=== PATIENT | male | born 1965 | race African-American/Black ===

== ENCOUNTER 2016-07-26 10:10 | Emergency (ER) | payer SELFPAY ==
[~2016-07-26] VITALS: Ht 170.2 cm; Wt 60.0 kg
[2016-07-26 10:13] VITALS: BP_SYST 184; BP_SYST 193; BP_DIAS 127; BP_DIAS 135; PULSE 96; RESP 15; TEMP 98.6; O2SAT 99
[2016-07-26] MEDS ORDERED: SODIUM CHLOR 0.9% 1000 ML INJ 1,000 ML IV SCH (10:39)
--- NOTE | 2016-07-26 10:44 | PD ---
HPI Chief Complaint: Abdominal Pain Time Seen by Provider: 10:40 Travel History International Travel<30 days: No Contact w/Intl Traveler<30days: No Traveled to known affect area: No History of Present Illness HPI Patient is a 50-year-old male presenting to the emergency department for evaluation of abdominal pain. Patient states the pain is epigastric, he reports pain is a 10 out of 10 and cramping in nature. He denies any change in bowel habits, nausea, vomiting, fever, chills, shortness of breath or chest pain. The pain is exacerbated by food, he reports decreased appetite. Patient endorses daily alcohol use, drinking 1 pint plus a 4 pack of beer daily however he has not had anything alcoholic to drink in 2 days due to the pain. Patient reports a past medical history significant for hypertension however he has not been taking any medications in over 4 years. He denies any allergies, he endorses daily tobacco use as well. PFSH Past Medical History Hypertension: Yes Past Surgical History Abdominal Surgery: Yes (inguinal hernia repair) Tonsillectomy: Yes Social History Alcohol Use: Yes Tobacco Use: Yes Substance Use: No Allergies-Medications (Allergen,Severity, Reaction): Coded Allergies: No Known Allergies (Unverified , 07/26/16) Review of Systems Except as stated in HPI: all other systems reviewed are Neg General / Constitutional: No: Fever, Chills HENT: No: Headaches Cardiovascular: No: Chest Pain or Discomfort Respiratory: No: Shortness of Breath Gastrointestinal: Positive: Abdominal Pain, Loss of Appetite, No: Nausea, Vomiting, Diarrhea, Changes in Bowel Habits, Indigestion Genitourinary: No: Dysuria Musculoskeletal: No: Myalgias Neurologic: No: Weakness, Dizziness, Focal Abnormalities Physical Exam Narrative GENERAL: Thin, well-developed, alert male. Resting comfortably in no acute distress. SKIN: Focused skin assessment warm/dry. HEAD: Atraumatic. Normocephalic. EYES: Pupils equal and round. No scleral icterus. No injection or drainage. ENT: No nasal bleeding or discharge. Mucous membranes pink and moist. NECK: Trachea midline. No JVD. CARDIOVASCULAR: Regular rate and rhythm. No murmur appreciated. RESPIRATORY: No accessory muscle use. Clear to auscultation. Breath sounds equal bilaterally. GASTROINTESTINAL: Abdomen soft, multi-tender to palpation in left upper quadrant and epigastric, nondistended. Hepatic and splenic margins not palpable. Positive bowel sounds, no rebound, no guarding. MUSCULOSKELETAL: No obvious deformities. No clubbing. No cyanosis. No edema. NEUROLOGICAL: Awake and alert. No obvious cranial nerve deficits. Motor grossly within normal limits. Normal speech. PSYCHIATRIC: Appropriate mood and affect; insight and judgment normal. Data Data Last Documented VS Vital Signs Date Time Temp Pulse Resp B/P Pulse Ox O2 Delivery O2 Flow Rate FiO2 07/26/16 11:32 100 Room Air 07/26/16 11:28 73 18 182/121 07/26/16 10:13 98.6 Orders Complete Blood Count With Diff (07/26/16 10:39) Comprehensive Metabolic Panel (07/26/16 10:39) Lipase (07/26/16 10:39) Iv Access Insert/Monitor (07/26/16 10:39) Ecg Monitoring (07/26/16 10:39) Oximetry (07/26/16 10:39) Sodium Chlor 0.9% 1000 Ml Inj (Ns 1000 M (07/26/16 10:39) Sodium Chloride 0.9% Flush (Ns Flush) (07/26/16 10:45) Famotidine Inj (Pepcid Inj) (07/26/16 10:45) Ketorolac Inj (Toradol Inj) (07/26/16 11:00) Lisinopril (Prinivil) (07/26/16 11:30) Labs Laboratory Tests Test 07/26/16 10:00 White Blood Count 6.2 TH/MM3 Red Blood Count 5.33 MIL/MM3 Hemoglobin 16.2 GM/DL Hematocrit 47.2 % Mean Corpuscular Volume 88.5 FL Mean Corpuscular Hemoglobin 30.3 PG Mean Corpuscular Hemoglobin 34.3 % Concent Red Cell Distribution Width 13.6 % Platelet Count 236 TH/MM3 Mean Platelet Volume 7.8 FL Neutrophils (%) (Auto) 70.1 % Lymphocytes (%) (Auto) 21.8 % Monocytes (%) (Auto) 7.5 % Eosinophils (%) (Auto) 0.1 % Basophils (%) (Auto) 0.5 % Neutrophils # (Auto) 4.3 TH/MM3 Lymphocytes # (Auto) 1.3 TH/MM3 Monocytes # (Auto) 0.5 TH/MM3 Eosinophils # (Auto) 0.0 TH/MM3 Basophils # (Auto) 0.0 TH/MM3 CBC Comment DIFF FINAL Differential Comment Sodium Level 138 MEQ/L Potassium Level 3.7 MEQ/L Chloride Level 95 MEQ/L Carbon Dioxide Level 29.7 MEQ/L Anion Gap 13 MEQ/L Blood Urea Nitrogen 9 MG/DL Creatinine 1.15 MG/DL Estimat Glomerular Filtration 68 ML/MIN Rate Random Glucose 118 MG/DL Calcium Level 9.4 MG/DL Total Bilirubin 0.6 MG/DL Aspartate Amino Transf 68 U/L (AST/SGOT) Alanine Aminotransferase 45 U/L (ALT/SGPT) Alkaline Phosphatase 89 U/L Total Protein 8.6 GM/DL Albumin 4.2 GM/DL Lipase 490 U/L [facility] Medical Decision Making Medical Screen Exam Complete: Yes Emergency Medical Condition: Yes Interpretation(s) Laboratory Tests Test 07/26/16 10:00 White Blood Count 6.2 TH/MM3 Red Blood Count 5.33 MIL/MM3 Hemoglobin 16.2 GM/DL Hematocrit 47.2 % Mean Corpuscular Volume 88.5 FL Mean Corpuscular Hemoglobin 30.3 PG Mean Corpuscular Hemoglobin 34.3 % Concent Red Cell Distribution Width 13.6 % Platelet Count 236 TH/MM3 Mean Platelet Volume 7.8 FL Neutrophils (%) (Auto) 70.1 % Lymphocytes (%) (Auto) 21.8 % Monocytes (%) (Auto) 7.5 % Eosinophils (%) (Auto) 0.1 % Basophils (%) (Auto) 0.5 % Neutrophils # (Auto) 4.3 TH/MM3 Lymphocytes # (Auto) 1.3 TH/MM3 Monocytes # (Auto) 0.5 TH/MM3 Eosinophils # (Auto) 0.0 TH/MM3 Basophils # (Auto) 0.0 TH/MM3 CBC Comment DIFF FINAL Differential Comment Sodium Level 138 MEQ/L Potassium Level 3.7 MEQ/L Chloride Level 95 MEQ/L Carbon Dioxide Level 29.7 MEQ/L Anion Gap 13 MEQ/L Blood Urea Nitrogen 9 MG/DL Creatinine 1.15 MG/DL Estimat Glomerular Filtration 68 ML/MIN Rate Random Glucose 118 MG/DL Calcium Level 9.4 MG/DL Total Bilirubin 0.6 MG/DL Aspartate Amino Transf 68 U/L (AST/SGOT) Alanine Aminotransferase 45 U/L (ALT/SGPT) Alkaline Phosphatase 89 U/L Total Protein 8.6 GM/DL Albumin 4.2 GM/DL Lipase 490 U/L Vital Signs Date Time Temp Pulse Resp B/P Pulse Ox O2 Delivery O2 Flow Rate FiO2 07/26/16 10:13 193/135 07/26/16 10:13 98.6 96 15 184/127 99 Differential Diagnosis Pancreatitis versus alcoholic gastritis versus cholecystitis versus other Narrative Course Patient is a 50-year-old male presenting to emergency department for evaluation of abdominal pain that is ongoing for 3 days. He is noted to be hypertensive, he has a history of the same but has been off medications for over 4 years per his report. Labs ordered and pending, famotidine ordered as well as IV fluids. 1120-patient reassessed, he sleeping in no acute distress. BP rechecked at 190/ 134. Lisinopril 20 mg by mouth times one dose given. 1155- patient continues to be resting comfortably, labs reviewed, patient has a mild pancreatitis likely induced by alcohol intake. He was advised to abstain from alcohol at the minimum reduce his intake. He was advised to maintain a clear liquid diet for 24 hours, if pain free he can advance to a bland low residue, advancing as tolerated again. He will be provided with a prescription for lisinopril, he will be given information regarding the [place] [facility]. He was advised to take blood pressure medications daily at the same time, not skipping doses. He is encouraged to follow up with them to establish care for routine health care. He was advised to return to emergency department for any new or worsening symptoms. Patient verbalized understanding of these instructions. Patient is stable for discharge. Diagnosis Primary Impression: Subacute pancreatitis Additional Impressions: Hypertension Qualified Code: I10 - Essential hypertension Admits to alcohol use Referrals: [facility] 3 days Patient Instructions: General Instructions, Hypertension (ED), Pancreatitis (ED ) Additional Instructions: Maintain a clear liquid diet for 24 hours, followed by a bland easy to digest diet, if pain free you may advance as tolerated. Take blood pressure medications as directed Follow-up at the [facility] Avoid excessive intake of alcohol or avoid altogether Return to emergency department for any new or worsening symptoms Med/Other Pt SpecificInfo: Prescription(s) given Scripts Lisinopril 20 Mg Tab20 Mg PO DAILY #30 TAB Ref 0 Prov:Cassie Tavarez 07/26/16 Disposition: 01 DISCHARGE HOME Condition: Stable Cassie Tavarez July 26, 2016 10:44
[2016-07-26] MEDS ORDERED: FAMOTIDINE 20 MG/2 ML VIAL IV PUSH ONE (10:45)
[2016-07-26] MEDS ORDERED: SODIUM CHLORIDE 0.9% FLUSH 10 ML FLUSH IV FLUSH PRN (10:45)
[2016-07-26] MEDS ORDERED: KETOROLAC TROMETHAMINE 30 MG/ML (IVP) VIAL IV PUSH ONE (11:00)
[2016-07-26 11:06] LABS: AUTOMATED NEUTROPHIL # 4.3 TH/MM3 (1.8-7.7); BASOPHIL % 0.5 % (0.0-2.0); EOSINOPHIL % 0.1 % (0.0-4.0); HEMATOCRIT 47.2 % (39.0-51.0); HEMO FLAGS DIFF FINAL; LYMPH % 21.8 % (9.0-44.0); LYMPHOCYTE # 1.3 TH/MM3 (1.0-4.8); MEAN CELL VOLUME 88.5 FL (80.0-100.0); MEAN CORPUSCULAR HEMOGLOBIN 30.3 PG (27.0-34.0); MEAN CORPUSCULAR HGB CONC 34.3 % (32.0-36.0); MONO % 7.5 % (0.0-8.0); NEUT % 70.1 % (16.0-70.0); PLATELET COUNT 236 TH/MM3 (150-450); RED BLOOD COUNT 5.33 MIL/MM3 (4.50-5.90); RED CELL DISTRIBUTION WIDTH 13.6 % (11.6-17.2); WHITE BLOOD COUNT 6.2 TH/MM3 (4.0-11.0)
[2016-07-26 11:28] VITALS: BP 182/121; PULSE 73; RESP 18
[2016-07-26] MEDS ORDERED: LISINOPRIL 20 MG TAB PO ONE (11:30)
[2016-07-26 11:32] VITALS: O2SAT 100
[2016-07-26 11:32] LABS: AST (GOT) 68 U/L (15-37); BICARBONATE 29.7 MEQ/L (21.0-32.0); BLOOD UREA NITROGEN 9 MG/DL (7-18); GLOMERULAR FILTRATION RATE 68 ML/MIN (>89)
[2016-07-26 11:42] LABS: ALKALINE PHOSPHATASE 89 U/L (45-117); ALT (GPT) 45 U/L (12-78); ANION GAP 13 MEQ/L (5-15); CHLORIDE 95 MEQ/L (98-107); POTASSIUM 3.7 MEQ/L (3.5-5.1); SODIUM (NA) 138 MEQ/L (136-145); TOTAL BILIRUBIN ADULT 0.6 MG/DL (0.2-1.0)
--- NOTE | 2016-07-26 11:54 | PD ---
Data Data Last Documented VS Vital Signs Date Time Temp Pulse Resp B/P Pulse Ox O2 Delivery O2 Flow Rate FiO2 07/26/16 11:32 100 Room Air 07/26/16 11:28 73 18 182/121 07/26/16 10:13 98.6 Orders Complete Blood Count With Diff (07/26/16 10:39) Comprehensive Metabolic Panel (07/26/16 10:39) Lipase (07/26/16 10:39) Iv Access Insert/Monitor (07/26/16 10:39) Ecg Monitoring (07/26/16 10:39) Oximetry (07/26/16 10:39) Sodium Chlor 0.9% 1000 Ml Inj (Ns 1000 M (07/26/16 10:39) Sodium Chloride 0.9% Flush (Ns Flush) (07/26/16 10:45) Famotidine Inj (Pepcid Inj) (07/26/16 10:45) Ketorolac Inj (Toradol Inj) (07/26/16 11:00) Lisinopril (Prinivil) (07/26/16 11:30) Labs Laboratory Tests Test 07/26/16 10:00 White Blood Count 6.2 TH/MM3 Red Blood Count 5.33 MIL/MM3 Hemoglobin 16.2 GM/DL Hematocrit 47.2 % Mean Corpuscular Volume 88.5 FL Mean Corpuscular Hemoglobin 30.3 PG Mean Corpuscular Hemoglobin 34.3 % Concent Red Cell Distribution Width 13.6 % Platelet Count 236 TH/MM3 Mean Platelet Volume 7.8 FL Neutrophils (%) (Auto) 70.1 % Lymphocytes (%) (Auto) 21.8 % Monocytes (%) (Auto) 7.5 % Eosinophils (%) (Auto) 0.1 % Basophils (%) (Auto) 0.5 % Neutrophils # (Auto) 4.3 TH/MM3 Lymphocytes # (Auto) 1.3 TH/MM3 Monocytes # (Auto) 0.5 TH/MM3 Eosinophils # (Auto) 0.0 TH/MM3 Basophils # (Auto) 0.0 TH/MM3 CBC Comment DIFF FINAL Differential Comment Sodium Level 138 MEQ/L Potassium Level 3.7 MEQ/L Chloride Level 95 MEQ/L Carbon Dioxide Level 29.7 MEQ/L Anion Gap 13 MEQ/L Blood Urea Nitrogen 9 MG/DL Creatinine 1.15 MG/DL Estimat Glomerular Filtration 68 ML/MIN Rate Random Glucose 118 MG/DL Calcium Level 9.4 MG/DL Total Bilirubin 0.6 MG/DL Aspartate Amino Transf 68 U/L (AST/SGOT) Alanine Aminotransferase 45 U/L (ALT/SGPT) Alkaline Phosphatase 89 U/L Total Protein 8.6 GM/DL Albumin 4.2 GM/DL Lipase 490 U/L MDM Supervised Visit with BLAYNE: Yes Narrative Course I, Dr. Garcia, have reviewed the advance practice practioner's documentation and am in agreement, met with the patient face to face, made the diagnosis, and the medical decision making was done by me. *My assessment and Findings: 50-year-old male here with complaint of epigastric and left upper quadrant abdominal pain without other associated symptoms. Patient does drink alcohol frequently, but not the last 2 days with pain. He has minimal epigastric and left upper quadrant abdominal tenderness to palpation. Differential includes alcoholic gastritis, peptic ulcer disease, pancreatitis and less likely hepatobiliary pathology. Laboratory workup shows minimally elevated lipase in the 400s. Patient was encouraged to do clear liquid diet, avoid alcohol and will be discharged home. Araceli Garcia MD July 26, 2016 11:54
[2016-07-26] MEDS ORDERED: LISI-515 PO (11:55)
[2016-07-26 12:16] VITALS: BP 179/118; PULSE 80; RESP 16; O2SAT 100
== END 2016-07-26 12:36 | disposition home or self-care (01) ==
LOC: NEPD 10:10
DX: K85.90 Acute pancreatitis without necrosis or infection, unspecified (principal); I10 Essential (primary) hypertension; R63.0 Anorexia; R74.8 Abnormal levels of other serum enzymes; Z72.0 Tobacco use
CPT/HCPCS: 80053; 83690; 85025; 96374; 96375; 99284; J1885; J7030

== ENCOUNTER 2016-07-26 21:00 | Observation (INO) | payer SELFPAY ==
[~2016-07-26 21:00] MED LIST: LISI-515 PO
[2016-07-26 21:02] VITALS: BP 174/105; PULSE 96; RESP 16; TEMP 98.4; O2SAT 96
--- NOTE | 2016-07-26 21:43 | PD ---
Physical Exam Time Seen by Provider: 21:42 Narrative 50 y/o male returns for reevaluation of epigastric abdominal pain. Seen earlier , dx with pancreatitis. Vital signs reviewed. Seen at triage desk. Awaiting bed placement. Data Data Last Documented VS Vital Signs Date Time Temp Pulse Resp B/P Pulse Ox O2 Delivery O2 Flow Rate FiO2 07/26/16 21:02 98.4 96 16 174/105 96 Room Air [facility] Medical Record Reviewed: Yes Supervised Visit with BLAYNE: Jean Carlos Hermosillo July 26, 2016 21:43
[2016-07-26] MEDS ORDERED: SODIUM CHLOR 0.9% 1000 ML INJ 1,000 ML IV SCH (22:28)
[2016-07-26] MEDS ORDERED: SODIUM CHLORIDE 0.9% FLUSH 10 ML FLUSH IV FLUSH PRN (22:30)
[2016-07-26 22:57] LABS: AUTOMATED NEUTROPHIL # 6.8 TH/MM3 (1.8-7.7); BASOPHIL % 0.4 % (0.0-2.0); EOSINOPHIL % 0.2 % (0.0-4.0); HEMATOCRIT 40.4 % (39.0-51.0); HEMO FLAGS DIFF FINAL; LYMPH % 16.9 % (9.0-44.0); LYMPHOCYTE # 1.5 TH/MM3 (1.0-4.8); MEAN CELL VOLUME 88.9 FL (80.0-100.0); MEAN CORPUSCULAR HEMOGLOBIN 30.3 PG (27.0-34.0); MONO % 6.5 % (0.0-8.0); PLATELET COUNT 201 TH/MM3 (150-450); RED BLOOD COUNT 4.54 MIL/MM3 (4.50-5.90); RED CELL DISTRIBUTION WIDTH 13.5 % (11.6-17.2); WHITE BLOOD COUNT 8.9 TH/MM3 (4.0-11.0)
--- NOTE | 2016-07-26 23:12 | PD ---
HPI Chief Complaint: Abdominal Pain Time Seen by Provider: 22:49 Travel History International Travel<30 days: No Contact w/Intl Traveler<30days: No Traveled to known affect area: No History of Present Illness HPI 50-year-old male presents emergency primary for second evaluation of epigastric and right upper quadrant abdominal pain. Patient states that he has been unable tolerate any by mouth for the past 3 days. He was here earlier and did have an elevated lipase and ultimately was sent home. Patient denies any chest pain shortness of breath diarrhea. Patient states his symptoms are been gradually worsening. States that fairly intense now. PFSH Past Medical History Hypertension: Yes Tetanus Vaccination: < 5 Years Past Surgical History Abdominal Surgery: Yes (inguinal hernia repair) Tonsillectomy: Yes Social History Alcohol Use: Yes (daily beer) Tobacco Use: Yes (1/2 ppd) Substance Use: No Allergies-Medications (Allergen,Severity, Reaction): Coded Allergies: No Known Allergies (Unverified , 07/26/16) Reported Meds & Prescriptions Reported Meds & Active Scripts Active Lisinopril 20 Mg Tab 20 Mg PO DAILY Review of Systems Except as stated in HPI: all other systems reviewed are Neg Physical Exam Narrative GENERAL: Well-developed well-nourished in mild discomfort, laying on his side on the stretcher. SKIN: No rash no wound. HEAD: Atraumatic. Normocephalic. EYES: Pupils equal and round. No scleral icterus. No injection or drainage. ENT: No nasal bleeding or discharge. Mucous membranes pink and moist. NECK: Trachea midline. No JVD. CARDIOVASCULAR: Regular rate and rhythm. No murmur appreciated. RESPIRATORY: No accessory muscle use. Clear to auscultation. Breath sounds equal bilaterally. GASTROINTESTINAL: Abdomen soft, minimally tender in the epigastric area, there is some percussive tenderness the epigastric area, nondistended. Hepatic and splenic margins not palpable. No rebound tenderness MUSCULOSKELETAL: No obvious deformities. No clubbing. No cyanosis. No edema. NEUROLOGICAL: Awake and alert. No obvious cranial nerve deficits. Motor grossly within normal limits. Normal speech. PSYCHIATRIC: Appropriate mood and affect; insight and judgment normal. Data Data Last Documented VS Vital Signs Date Time Temp Pulse Resp B/P Pulse Ox O2 Delivery O2 Flow Rate FiO2 07/26/16 21:02 98.4 96 16 174/105 96 Room Air Orders Complete Blood Count With Diff (07/26/16 22:28) Comprehensive Metabolic Panel (07/26/16 22:28) Lipase (07/26/16 22:28) Iv Access Insert/Monitor (07/26/16 22:28) Ecg Monitoring (07/26/16 22:28) Oximetry (07/26/16 22:28) Sodium Chlor 0.9% 1000 Ml Inj (Ns 1000 M (07/26/16 22:28) Sodium Chloride 0.9% Flush (Ns Flush) (07/26/16 22:30) Morphine Inj (Morphine Inj) (07/26/16 23:15) Ondansetron Inj (Zofran Inj) (07/26/16 23:15) Ct Abd/Pel W Iv Contrast(Rout) (07/27/16 ) Admit Order (Ed Use Only) (07/27/16 ) Labs Laboratory Tests Test 07/26/16 22:39 White Blood Count 8.9 TH/MM3 Red Blood Count 4.54 MIL/MM3 Hemoglobin 13.8 GM/DL Hematocrit 40.4 % Mean Corpuscular Volume 88.9 FL Mean Corpuscular Hemoglobin 30.3 PG Mean Corpuscular Hemoglobin 34.0 % Concent Red Cell Distribution Width 13.5 % Platelet Count 201 TH/MM3 Mean Platelet Volume 7.9 FL Neutrophils (%) (Auto) 76.0 % Lymphocytes (%) (Auto) 16.9 % Monocytes (%) (Auto) 6.5 % Eosinophils (%) (Auto) 0.2 % Basophils (%) (Auto) 0.4 % Neutrophils # (Auto) 6.8 TH/MM3 Lymphocytes # (Auto) 1.5 TH/MM3 Monocytes # (Auto) 0.6 TH/MM3 Eosinophils # (Auto) 0.0 TH/MM3 Basophils # (Auto) 0.0 TH/MM3 CBC Comment DIFF FINAL Differential Comment Sodium Level 140 MEQ/L Potassium Level 3.5 MEQ/L Chloride Level 103 MEQ/L Carbon Dioxide Level 27.2 MEQ/L Anion Gap 10 MEQ/L Blood Urea Nitrogen 13 MG/DL Creatinine 1.51 MG/DL Estimat Glomerular Filtration 60 ML/MIN Rate Random Glucose 117 MG/DL Calcium Level 8.9 MG/DL Total Bilirubin 0.3 MG/DL Aspartate Amino Transf 69 U/L (AST/SGOT) Alanine Aminotransferase 44 U/L (ALT/SGPT) Alkaline Phosphatase 79 U/L Total Protein 7.4 GM/DL Albumin 3.6 GM/DL Lipase 457 U/L MDM Medical Decision Making Medical Screen Exam Complete: Yes Emergency Medical Condition: Yes Differential Diagnosis Pancreatitis, cholecystitis, dehydration, nausea vomiting, acute kidney injury. Narrative Course Patient 50-year-old male second presentation for epigastric pain today. Does have elevation of lipase. His creatinine has gone from 1.0-1.5 since ER evaluation earlier today. He has indications for admission at this time. Patient was discussed with Dr. Talamantes for admission. CT scan is still pending at the time of admission and she will follow that up. This was discussed with the patient and he is agreeable. Last 24 hours Impressions Abdomen/Pelvis CT 07/27/16 0000 Signed Impressions: Service Date/Time: Wednesday, July 27, 2016 00:57 - CONCLUSION: 1. Right hydronephrosis as above which may reflect uteropelvic junction obstruction likely long-standing. Chadwick Riggs MD Diagnosis Primary Impression: Pancreatitis Qualified Code: K85.90 - Acute pancreatitis, unspecified complication status, unspecified pancreatitis type Admitting Information Admitting Physician Requests: Observation Condition: Stable Virgil Costa MD July 26, 2016 23:12
[2016-07-26] MEDS ORDERED: MORPHINE SULFATE 4 MG/ML INJ IV PUSH ONE (23:15)
[2016-07-26] MEDS ORDERED: ONDANSETRON HCL 4 MG/2 ML VIAL IV PUSH ONE (23:15)
[2016-07-26 23:22] LABS: ALKALINE PHOSPHATASE 79 U/L (45-117); ALT (GPT) 44 U/L (12-78); ANION GAP 10 MEQ/L (5-15); AST (GOT) 69 U/L (15-37); BICARBONATE 27.2 MEQ/L (21.0-32.0); BLOOD UREA NITROGEN 13 MG/DL (7-18); CHLORIDE 103 MEQ/L (98-107); GLOMERULAR FILTRATION RATE 60 ML/MIN (>89); POTASSIUM 3.5 MEQ/L (3.5-5.1); SODIUM (NA) 140 MEQ/L (136-145); TOTAL BILIRUBIN ADULT 0.3 MG/DL (0.2-1.0)
[2016-07-27] VITALS (12 sets, daily range): BP systolic 122–203; BP diastolic 85–120; PULSE 56–78; RESP 17–18; TEMP 97.8–98.8; O2SAT 97–100
[2016-07-27] MEDS ORDERED: ONDANSETRON HCL 4 MG/2 ML VIAL IVP PRN (00:15)
[2016-07-27] MEDS ORDERED: NALOXONE HCL 0.4 MG/ML AMP IV PRN (00:15)
[2016-07-27] MEDS ORDERED: SODIUM CHLORIDE 0.9% FLUSH 10 ML FLUSH IV FLUSH PRN (00:15)
[2016-07-27] MEDS: SODIUM CHLOR 0.9% 1000 ML INJ 1,000 ML IV SCH ×3 (00:30→20:29)
[2016-07-27] MEDS ORDERED: IOHEXOL 350 MG/ML 10 ML VIAL (for RAD DIAG) IV ONE (00:56)
--- NOTE | 2016-07-27 01:22 | RADRPT ---
EXAM DATE/TIME: 07/27/2016 00:57 [facility] COMPARISON: No previous studies available for comparison. INDICATIONS : Abdomen pain past 3 days. IV CONTRAST: 90 cc Omnipaque 350 (iohexol) IV ORAL CONTRAST: No oral contrast ingested. RADIATION DOSE: 9.96 CTDIvol (mGy) MEDICAL HISTORY : Hypertension. SURGICAL HISTORY : Inguinal hernia repair. ENCOUNTER: Initial ACUITY: 3 days PAIN SCALE: 7/10 LOCATION: Bilateral abdomen TECHNIQUE: Volumetric scanning of the abdomen and pelvis was performed. Using automated exposure control and ad justment of the mA and/or kV according to patient size, radiation dose was kept as low as reasonably achievable to obtain optimal diagnostic quality images. FINDINGS: Examination of the lung bases demonstrates no abnormality. No pleural fluid is identified. No pulmona ry nodules are present. The liver and spleen are normal in size and no focal defects are identified. The gallbladder and pancreas are unremarkable. No intrahepatic or extrahepatic ductal dilatation is s een. The adrenal glands are unremarkable. The left kidney is unremarkable. Examination the right kidn ey demonstrates severe hydronephrosis with thinning of the cortex. No hydroureter is seen and this ma y reflect a congenitally ureteropelvic junction obstruction. Examination of the pelvis demonstrates no evidence of free fluid or pelvic mass. No abnormally enlarg ed inguinal or retroperitoneal lymph nodes are present. The bladder is unremarkable. CONCLUSION: 1. Right hydronephrosis as above which may reflect uteropelvic junction obstruction likely long-stand ing. Chadwick Riggs MD on July 27, 2016 at 1:16 Board Certified Radiologist. This report was verified electronically.
[2016-07-27] MEDS: MORPHINE SULFATE 4 MG/ML INJ IV PUSH PRN ×6 (01:43→20:29)
--- NOTE | 2016-07-27 02:00 | HHI.HP ---
[facility] [place] [facility] [place] [facility] No Primary Care Physician Admission Diagnosis Pancreatitis, OLGA Diagnoses: Chief Complaint: abdominal pain Travel History International Travel<30 Days: No Contact w/Intl Traveler <30 Da: No Traveled to Known Affected Are: No History of Present Illness 3 days nausea vomiting no dairrhea abdominal pain ruq and epigastric no blood no urine or buring no blood in urine right flank pain no fever reports of headache not takign meds but did have hot sweats and cold Review of Systems Except as stated in HPI: all other systems reviewed are Neg Past Family Social History Past Medical History htn Past Surgical History hernia sx circumcision Allergies: Coded Allergies: No Known Allergies (Unverified , 07/26/16) Family History htn in family most members Social History drinks a pint or 4 beers to 8 beers a day last drink was 3 days ago smoke half a pack a day Physical Exam Vital Signs Vital Signs Date Time Temp Pulse Resp B/P Pulse Ox O2 Delivery O2 Flow Rate FiO2 07/26/16 21:02 98.4 96 16 174/105 96 Room Air Physical Exam GENERAL: awake, alert, oriented, not in distress NECK: Trachea midline. No JVD or lymphadenopathy. Supple, nontender, no meningeal signs. CARDIOVASCULAR: Regular rate and rhythm without murmurs, gallops, or rubs. RESPIRATORY: Clear to auscultation. Breath sounds equal bily within normal limits. Abdomen: soft, tenderness at RUQ and epigastric, no rebound, no guarding MUSCULOSKELETAL: no calf asymmetry or edema : no suprapubic tenderness NEURO: awake, alert, oriented, not in distress Laboratory Laboratory Tests Test 07/26/16 22:39 White Blood Count 8.9 Red Blood Count 4.54 Hemoglobin 13.8 Hematocrit 40.4 Mean Corpuscular Volume 88.9 Mean Corpuscular Hemoglobin 30.3 Mean Corpuscular Hemoglobin 34.0 Concent Red Cell Distribution Width 13.5 Platelet Count 201 Mean Platelet Volume 7.9 Neutrophils (%) (Auto) 76.0 Lymphocytes (%) (Auto) 16.9 Monocytes (%) (Auto) 6.5 Eosinophils (%) (Auto) 0.2 Basophils (%) (Auto) 0.4 Neutrophils # (Auto) 6.8 Lymphocytes # (Auto) 1.5 Monocytes # (Auto) 0.6 Eosinophils # (Auto) 0.0 Basophils # (Auto) 0.0 CBC Comment DIFF FINAL Differential Comment Sodium Level 140 Potassium Level 3.5 Chloride Level 103 Carbon Dioxide Level 27.2 Anion Gap 10 Blood Urea Nitrogen 13 Creatinine 1.51 Estimat Glomerular Filtration 60 Rate Random Glucose 117 Calcium Level 8.9 Total Bilirubin 0.3 Aspartate Amino Transf 69 (AST/SGOT) Alanine Aminotransferase 44 (ALT/SGPT) Alkaline Phosphatase 79 Total Protein 7.4 Albumin 3.6 Lipase 457 Result Diagram: 07/26/16223807/26/162238 Imaging Last [address] 07/27/16 0000 Signed Impressions: Service Date/Time: Wednesday, July 27, 2016 02:58 - CONCLUSION: 1. No evidence of acute intracranial pathology. No masses are identified. Chadwick Riggs MD Abdomen/Pelvis CT 07/27/16 0000 Signed Impressions: Service Date/Time: Wednesday, July 27, 2016 00:57 - CONCLUSION: 1. Right hydronephrosis as above which may reflect uteropelvic junction obstruction likely long-standing. 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 IV fluids. Pain control. Will follow Ferny's criteria. Urology consult for his referral motor refill function DVT prophylaxis with lovenox Discussed Condition With patient, ER Problem Qualifiers (1) Pancreatitis: Qualified Code: K85.90 - Acute pancreatitis, unspecified complication status, unspecified pancreatitis type Tammy Parson MD July 27, 2016 02:00
[2016-07-27] MEDS ORDERED: ENALAPRILAT 2.5 MG/2 ML VIAL IV PUSH PRN (02:15)
[2016-07-27] MEDS ORDERED: cloNIDine HCL 0.1 MG TAB PO ONE ×2 (02:30→04:15)
[2016-07-27] MEDS ORDERED: LORazepam 2 MG/ML VIAL IV PUSH PRN ×3 (02:30→07:45)
--- NOTE | 2016-07-27 03:05 | RADRPT ---
EXAM DATE/TIME: 07/27/2016 02:58 [facility] COMPARISON: No previous studies available for comparison. INDICATIONS : Headches. RADIATION DOSE: 37.95 CTDIvol (mGy) MEDICAL HISTORY : Hypertension. SURGICAL HISTORY : Inguinal hernia repair. ENCOUNTER: Initial ACUITY: 3 days PAIN SCALE: 7/10 LOCATION: Bilateral cranial TECHNIQUE: Multiple contiguous axial images were obtained of the head. Using automated exposure control and adj ustment of the mA and/or kV according to patient size, radiation dose was kept as low as reasonably a chievable to obtain optimal diagnostic quality images. FINDINGS: CEREBRUM: The ventricles are normal for age. No evidence of midline shift, mass lesion, hemorrhage or acute in farction. No extra-axial fluid collections are seen. POSTERIOR FOSSA: The cerebellum and brainstem are intact. The 4th ventricle is midline. The cerebellopontine angle i s unremarkable. EXTRACRANIAL: The visualized portion of the orbits is intact. SKULL: The calvaria is intact. No evidence of skull fracture. CONCLUSION: 1. No evidence of acute intracranial pathology. No masses are identified. Chadwick Riggs MD on July 27, 2016 at 3:03 Board Certified Radiologist. This report was verified electronically.
[2016-07-27] MEDS ORDERED: LORazepam 1 MG TAB PO PRN (07:45)
[2016-07-27] MEDS ORDERED: LORazepam 2 MG TAB PO PRN (07:45)
[2016-07-27] MEDS ORDERED: FLUMAZENIL 0.5 MG/5 ML VIAL IV PUSH PRN (07:45)
[2016-07-27] MEDS: FOLIC ACID 1 MG TAB PO SCH (08:35)
[2016-07-27] MEDS: SODIUM CHLORIDE 0.9% FLUSH 10 ML FLUSH IV FLUSH SCH ×2 (08:40→20:23)
[2016-07-27] MEDS ORDERED: chlordiazePOXIDE 25 MG CAP PO SCH (09:00)
[2016-07-27] MEDS ORDERED: THIAMINE HCL 100 MG TAB PO SCH (09:00)
[2016-07-27] MEDS: MULTIVITAMIN INJ 10 ML, FOLIC ACID INJ 1 MG in SODIUM CHLORID 0.9% 500 ML INJ 500 ML IV SCH (09:05)
[2016-07-27 10:05] LABS: ALKALINE PHOSPHATASE 72 U/L (45-117); ALT (GPT) 41 U/L (12-78); ANION GAP 7 MEQ/L (5-15); AST (GOT) 53 U/L (15-37); BICARBONATE 29.2 MEQ/L (21.0-32.0); BLOOD UREA NITROGEN 8 MG/DL (7-18); CHLORIDE 104 MEQ/L (98-107); GLOMERULAR FILTRATION RATE 84 ML/MIN (>89); POTASSIUM 3.4 MEQ/L (3.5-5.1); SODIUM (NA) 140 MEQ/L (136-145); TOTAL BILIRUBIN ADULT 0.4 MG/DL (0.2-1.0)
[2016-07-27] MEDS ORDERED: POTASSIUM CHLORIDE 20 MEQ CONTROLLED RELEASE TAB PO ONE (10:15)
--- NOTE | 2016-07-27 10:45 | HHI.PR ---
Subjective Remarks Follow up nausea and abdominal pain. Pt seen and examined. Patient states without morphine he still has epigastric pain and cramping lower transverse abdominal pain.01/03 without morphine, but no pain when he takes it. Denies any radiation to his flank or lower back. He tolerated clear liquids this am. Denies any nausea, vomiting or hematuria. Objective Vitals Vital Signs Date Time Temp Pulse Resp B/P Pulse Ox O2 Delivery O2 Flow Rate FiO2 07/27/16 07:24 97.8 65 17 131/85 98 07/27/16 06:27 122/89 07/27/16 05:17 162/109 07/27/16 04:53 169/113 07/27/16 04:00 190/120 Automatic Cuff 07/27/16 03:06 78 18 168/109 100 07/27/16 02:15 203/119 07/26/16 21:02 98.4 96 16 174/105 96 Room Air Result Diagram: 07/26/16 2239 07/27/16 0855 Imaging Last Impressions Head CT 07/27/16 0000 Signed Impressions: Service Date/Time: Wednesday, July 27, 2016 02:58 - CONCLUSION: 1. No evidence of acute intracranial pathology. No masses are identified. Chadwick Riggs MD Abdomen/Pelvis CT 07/27/16 0000 Signed Impressions: Service Date/Time: Wednesday, July 27, 2016 00:57 - CONCLUSION: 1. Right hydronephrosis as above which may reflect uteropelvic junction obstruction likely long-standing. Chadwick Riggs MD Objective Remarks GENERAL: thin, well nourished patient in no acute distress SKIN: Warm and dry. HEAD: Atraumatic. Normocephalic. EYES: Pupils equal and round. No scleral icterus. No injection or drainage. NECK: Trachea midline. No JVD. CARDIOVASCULAR: Regular rate and rhythm. RESPIRATORY: No accessory muscle use. Clear to auscultation. Breath sounds equal bilaterally. GASTROINTESTINAL: Abdomen soft, epigastric and lower tenderness, nondistended. BSx4 MUSCULOSKELETAL: Extremities without clubbing, cyanosis, or edema. No obvious deformities. NEUROLOGICAL: Awake and alert. Motor grossly within normal limits. Normal speech. PSYCHIATRIC: Appropriate mood and affect; insight and judgment normal. Medications and IVs Current Medications Medications (Trade) Dose Ordered Sig/Martir Route Start Time Stop Time Status Last Admin (NS 1000 ml Inj) 1,000 ml @ 100 mls/hr Q10H IV 07/27/16 00:11 07/27/16 00:30 (NS Flush) 2 ml UNSCH PRN IV FLUSH 07/27/16 00:15 (NS Flush) 2 ml BID IV FLUSH 07/27/16 09:00 (Zofran Inj) 4 mg Q6H PRN IVP 07/27/16 00:15 (Narcan Inj) 0.4 mg UNSCH PRN IV 07/27/16 00:15 (Morphine Inj) 2 mg Q3H PRN IV PUSH 07/27/16 00:15 07/27/16 08:34 (Librium) 25 mg TID PO 07/27/16 09:00 07/27/16 08:35 Folic Acid 1 mg 1 mg DAILY PO 07/27/16 09:00 08/01/16 08:59 07/27/16 08:35 Multivitamins 10 ml/Folic Acid 1 mg/Sodium Chloride 510.2 ml @ 125 mls/hr Q24H IV 07/27/16 09:00 08/01/16 08:59 07/27/16 09:05 (Thiamine Inj/NS Inj) 101 ml @ 100 mls/hr Q24H IV 07/27/16 09:00 07/30/16 08:59 (Vitamin B1) 100 mg DAILY PO 07/30/16 09:00 (Catapres) 0.1 mg Q6H PRN PO 07/27/16 07:45 (Romazicon Inj) 0.2 mg Q1M PRN IV PUSH 07/27/16 07:45 (Ativan) 1 mg Q4H PRN PO 07/27/16 07:45 (Ativan) 2 mg Q2H PRN PO 07/27/16 07:45 (Ativan Inj) 2 mg Q1H PRN IV PUSH 07/27/16 07:45 (Ativan Inj) 2 mg Q15M PRN IV PUSH 07/27/16 07:45 A/P Problem List: (1) Pancreatitis ICD Code: K85.90 Status: Acute (2) OLGA (acute kidney injury) ICD Code: N17.9 Status: Acute (3) Hydronephrosis ICD Code: N13.30 Status: Acute (4) Hypokalemia ICD Code: E87.6 Status: Acute (5) ETOH abuse ICD Code: F10.10 Status: Chronic Assessment and Plan 50 y/o male with a history of ETOH abuse presented to the ER with nausea, and abdominal pain. 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
[2016-07-27 11:03] LABS: BLOOD, URINE NEG (NEG); GLUCOSE,URINE NEG (NEG); KETONE, URINE NEG (NEG); NITRITE,URINE NEG (NEG); URINE COLOR YELLOW (YELLW/STRAW)
[2016-07-27 11:06] LABS: COMMENT (UR) CULT NOT INDICATED; CULTURE IF INDICATED CULT NOT INDICATED
[2016-07-27] MEDS ORDERED: FUROSEMIDE 40 MG/4 ML VIAL ONE (11:44)
[2016-07-27] MEDS: PANTOPRAZOLE SODIUM 40 MG VIAL IV PUSH SCH (12:39)
[2016-07-27] MEDS: THIAMINE INJ 100 MG in SODIUM CHLORIDE 0.9% INJ 100 ML IV SCH (15:00)
--- NOTE | 2016-07-27 16:30 | RADRPT ---
EXAM DATE/TIME: 07/27/2016 11:31 [place] COMPARISON: CT ABDOMEN & PELVIS W CONTRAST, July 27, 2016, 0:57. INDICATIONS : Hydronephrosis right kidney. DOSE: 21 mCi Tc99m DTPA IV MEDICATION: 40 mg Lasix IV MEDICAL HISTORY : Hypertension. SURGICAL HISTORY : Tonsillectomy. Hernia repair. ENCOUNTER: Initial ACUITY: 1 day PAIN SCALE: 5/10 LOCATION: Abdomen. TECHNIQUE: Dynamic images were performed in the posterior projection for a total of 28 minutes. FINDINGS: FLOW: There is intact perfusion to the left kidney and significantly diminished perfusion to the right kidn ey. EXCRETION: There is normal renal cortical transit time and normal rate of washout from the parenchyma from the l eft kidney with approximately 80% emptying occurring post Lasix. There is essentially no significant emptying from the right kidney with progressive accumulation of the radionuclide. CONCLUSION: High-grade obstruction in right kidney. Vandana Rios MD on July 27, 2016 at 16:25 Board Certified Radiologist. This report was verified electronically.
[2016-07-27] MEDS: cloNIDine HCL 0.1 MG TAB PO PRN (17:18)
[2016-07-28] VITALS (9 sets, daily range): BP systolic 138–165; BP diastolic 90–113; PULSE 67–80; RESP 16–20; TEMP 95.5–98.8; O2SAT 94–97
[2016-07-28] MEDS: MORPHINE SULFATE 4 MG/ML INJ IV PUSH PRN ×5 (00:13→20:05)
[2016-07-28] MEDS: SODIUM CHLOR 0.9% 1000 ML INJ 1,000 ML IV SCH ×2 (04:51→17:06)
[2016-07-28] MEDS: cloNIDine HCL 0.1 MG TAB PO PRN (05:12)
[2016-07-28 05:29] LABS: AUTOMATED NEUTROPHIL # 3.6 TH/MM3 (1.8-7.7); BASOPHIL % 0.6 % (0.0-2.0); EOSINOPHIL # 0.1 TH/MM3 (0-0.4); EOSINOPHIL % 1.2 % (0.0-4.0); HEMATOCRIT 40.7 % (39.0-51.0); HEMO FLAGS DIFF FINAL; LYMPH % 33.4 % (9.0-44.0); MEAN CELL VOLUME 90.2 FL (80.0-100.0); MEAN CORPUSCULAR HEMOGLOBIN 29.8 PG (27.0-34.0); MEAN CORPUSCULAR HGB CONC 33.1 % (32.0-36.0); MONO % 6.4 % (0.0-8.0); NEUT % 58.4 % (16.0-70.0); PLATELET COUNT 190 TH/MM3 (150-450); RED BLOOD COUNT 4.51 MIL/MM3 (4.50-5.90); RED CELL DISTRIBUTION WIDTH 13.7 % (11.6-17.2); WHITE BLOOD COUNT 6.1 TH/MM3 (4.0-11.0)
[2016-07-28 05:48] LABS: ALKALINE PHOSPHATASE 64 U/L (45-117); ALT (GPT) 37 U/L (12-78); ANION GAP 10 MEQ/L (5-15); AST (GOT) 38 U/L (15-37); BICARBONATE 27.7 MEQ/L (21.0-32.0); BLOOD UREA NITROGEN 6 MG/DL (7-18); CHLORIDE 102 MEQ/L (98-107); GLOMERULAR FILTRATION RATE 94 ML/MIN (>89); POTASSIUM 3.4 MEQ/L (3.5-5.1); SODIUM (NA) 140 MEQ/L (136-145); TOTAL BILIRUBIN ADULT 0.5 MG/DL (0.2-1.0)
[2016-07-28] MEDS ORDERED: POTASSIUM CHLORIDE 20 MEQ CONTROLLED RELEASE TAB PO ONE (07:30)
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
[2016-07-28] MEDS: SODIUM CHLORIDE 0.9% FLUSH 10 ML FLUSH IV FLUSH SCH ×2 (09:00→20:05)
[2016-07-28] MEDS: FOLIC ACID 1 MG TAB PO SCH (09:18)
[2016-07-28] MEDS: THIAMINE INJ 100 MG in SODIUM CHLORIDE 0.9% INJ 100 ML IV SCH (09:30)
--- NOTE | 2016-07-28 10:40 | MB ---
cc: PING ALTMAN M.D., JEFFREY D. MD DATE OF CONSULTATION: 07/28/[address] Larios. REASON FOR CONSULTATION Abdominal pain, nausea, vomiting. HISTORY OF PRESENT ILLNESS Mr. Alejandra is a 50-year-old gentleman with 4-day history of nausea, vomiting and abdominal pain. On presentation he was found to have hydronephrosis as well as biochemical evidence of pancreatitis. CT scan, however, shows no evidence of pancreatitis. His lipases have returned to normal but he continues to have abdominal pain and nausea, vomiting. He does admit to alcohol use. He says he had a similar episode a few years ago and at that time he drank milk and that settled his stomach down. He says this time he tried milk but did not help his symptoms so he came to the hospital. PAST MEDICAL HISTORY Hypertension. PAST SURGICAL HISTORY Hernia surgery. ALLERGIES None documented. FAMILY HISTORY Noncontributory. SOCIAL HISTORY The patient drinks beer, also is a smoker. PHYSICAL EXAMINATION GENERAL: Reveals a well-nourished man, in no apparent distress. VITAL SIGNS: Stable. HEAD/NECK: Anicteric sclerae. CHEST: Bilateral air entry with rales. ABDOMEN: Abdomen is soft, some tenderness in the epigastric area. No guarding or rigidity. ORAL HEALTH THERAPIST: Exam is nonfocal. LABORATORY DATA Labs reveal hemoglobin of 13.5, lipase 312. Liver function tests are essentially normal with an AST of 38. IMAGING STUDIES A CT of the abdomen and pelvis shows right hydronephrosis, otherwise no abnormalities. IMPRESSION Abdominal pain, nausea, vomiting, very likely related to pancreatitis. However, gastritis, peptic ulcer disease needs to be ruled out. I have discussed endoscopy with the patient and he is agreeable. This is planned for later today, n.p.o. at this time, continue IV fluids. Will follow with you. Thank you for this referral. Ping Altman MD HZ/TLL /10:11 AM /10:29 AM
[2016-07-28] MEDS: MULTIVITAMIN INJ 10 ML, FOLIC ACID INJ 1 MG in SODIUM CHLORID 0.9% 500 ML INJ 500 ML IV SCH (10:42)
[2016-07-28] MEDS: PANTOPRAZOLE SODIUM 40 MG VIAL IV PUSH SCH (11:00)
[2016-07-28] MEDS ORDERED: PROPOFOL 200 MG/20 ML AMP IV ONE (13:18)
--- NOTE | 2016-07-28 13:26 | GIPROC ---
[facility] [address] [facility]. [facility], [id number] EGD PROCEDURE REPORT EXAM DATE: 07/28/2016 PATIENT NAME: Andrea Alejandra MR #: [id number] BIRTHDATE: 1965 ATTENDING: Milly Burton MD ORDER #: [id number] MATERIAL HAULER: Viki Chappell and Carmen Manning STATUS: inpatient INDICATIONS: The patient is a 50 yr old male here for an EGD due to epigastric abdominal pain PROCEDURE PERFORMED: EGD w/ biopsy MEDICATIONS: None and Per Anesthesia. TOPICAL ANESTHETIC: CONSENT: The patient understands the risks and benefits of the procedure and understands that these risks include, but are not limited to: sedation, allergic reaction, infection, perforation and/or bleeding. Alternative means of evaluation and treatment include, among others: physical exam, x-rays, and/or surgical intervention. The patient elects to proceed with this endoscopic procedure. medical equipment was checked for proper function. Hand hygiene and appropriate measures for infection prevention was taken. After the risks, benefits and alternatives of the procedure were thoroughly explained, Informed consent was verified, confirmed and timeout was successfully executed by the treatment team. The patient was anesthetized with topical anesthesia and the Pentax EG-[id number] endoscope was introduced through the mouth and advanced to the second portion of the duodenum. Retroflexed views revealed no abnormalities The gastroscope was then slowly withdrawn and removed. ESOPHAGUS: The mucosa of the esophagus appeared normal. STOMACH: There was erythematous moderate gastritis in the gastric antrum. A biopsy was performed using cold forceps. DUODENUM: The duodenal mucosa appeared normal in the bulb and second portion of the duodenum. ADVERSE EVENTS: There were no complications. IMPRESSIONS: 1. The esophagus appeared normal 2. There was erythematous gastritis in the gastric antrum; biopsy was performed 3. Normal duodenal mucosa in the bulb and second portion of the duodenum 4. Retroflexed views revealed no abnormalities RECOMMENDATIONS: 1. Anti-reflux regimen 2. Await biopsy results. Biopsy results will not be ready for 7-10 days. If you don't hear from us in two weeks, call our office for biopsy results. 3. Continue PPI 4. Avoid NSAIDS 5. GI will sign off. PATIENT CONDITION: stable DISPOSITION: Inpatient REPEAT EXAM: Return 3 years EGD pending biopsy results Milly Burton MD eSigned: Milly Burton MD 07/28/2016 1:26 PM cc: PATIENT NAME: Andrea Alejandra tSeven MR#: [id number]
[2016-07-28] MEDS ORDERED: PROT40TA PO (17:47)
--- NOTE | 2016-07-28 17:48 | HHI.DCPOC ---
Discharge Care Plan Diagnosis: (1) Subacute pancreatitis (2) ETOH abuse (3) Gastritis Goals to Promote Your Health * To prevent worsening of your condition and complications * To maintain your health at the optimal level Directions to Meet Your Goals Take your medications as prescribed Follow your dietary instruction Follow activity as directed Keep your appointments as scheduled Take your immunizations and boosters as scheduled If your symptoms worsen call your PCP, if no PCP go to Urgent Care Center or Emergency Room Smoking is Dangerous to Your Health. Avoid second hand smoke Call the 24-hour hour crisis hotline for domestic abuse at Miriam Espitia July 28, 2016 17:48
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
[2016-07-29] VITALS: BP 174/113; PULSE 76; RESP 16; TEMP 96.5; O2SAT 100
[2016-07-29] MEDS: MORPHINE SULFATE 4 MG/ML INJ IV PUSH PRN ×2 (00:06→05:43)
[2016-07-29] MEDS: cloNIDine HCL 0.1 MG TAB PO PRN (00:06)
[2016-07-29] MEDS: SODIUM CHLOR 0.9% 1000 ML INJ 1,000 ML IV SCH (02:11)
[2016-07-29 04:00] VITALS: BP 135/92; PULSE 80; RESP 16; TEMP 97.4; O2SAT 99
[2016-07-29 08:00] VITALS: BP 169/112; PULSE 85; RESP 16; TEMP 97.5; O2SAT 97
--- NOTE | 2016-07-29 08:05 | HHI.PR ---
Subjective Remarks Follow up epigastric pain. Patient states he still has tenderness but it is a little better. Encouraged him to stop drinking to help heal the gastritis. Explained to patient that he will need to follow up with GI in 2 weeks for biopsy results, and that he will be on a PPI for another 4 weeks. Denies any chest pain, sob, fever or chills. Able to tolerate meals. Objective Vitals Vital Signs Date Time Temp Pulse Resp B/P Pulse Ox O2 Delivery O2 Flow Rate FiO2 07/29/16 04:00 97.4 80 16 135/92 99 07/29/16 00:00 96.5 76 16 174/113 100 07/28/16 22:11 80 07/28/16 19:30 98.8 80 20 138/93 97 07/28/16 15:17 97.4 68 18 165/110 95 07/28/16 13:37 77 16 165/110 98 07/28/16 13:30 84 16 143/89 98 07/28/16 13:25 96.7 77 16 127/89 100 07/28/16 12:15 98.1 79 18 154/113 95 I/O 07/28/16 07/28/16 07/28/16 07/29/16 07/29/16 07/29/16 07:00 15:00 23:00 07:00 15:00 23:00 Intake Total 100 ml Balance 100 ml IV Total 100 ml Result Diagram: 07/28/16 0453 07/28/16 0453 Imaging Last Impressions Renal Scan w/Medication NM 07/27/16 0000 Signed Impressions: Service Date/Time: Wednesday, July 27, 2016 11:31 - CONCLUSION: High-grade obstruction in right kidney. Vandana Rios MD Head CT 07/27/16 0000 Signed Impressions: Service Date/Time: Wednesday, July 27, 2016 02:58 - CONCLUSION: 1. No evidence of acute intracranial pathology. No masses are identified. Chadwick Riggs MD Abdomen/Pelvis CT 07/27/16 0000 Signed Impressions: Service Date/Time: Wednesday, July 27, 2016 00:57 - CONCLUSION: 1. Right hydronephrosis as above which may reflect uteropelvic junction obstruction likely long-standing. Chadwick Riggs MD Objective Remarks GENERAL: thin, well nourished patient in no acute distress SKIN: Warm and dry. HEAD: Atraumatic. Normocephalic. EYES: Pupils equal and round. No scleral icterus. No injection or drainage. NECK: Trachea midline. No JVD. CARDIOVASCULAR: Regular rate and rhythm. RESPIRATORY: No accessory muscle use. Clear to auscultation. Breath sounds equal bilaterally. GASTROINTESTINAL: Abdomen soft, mild epigastric tenderness, nondistended. BSx4 MUSCULOSKELETAL: Extremities without clubbing, cyanosis, or edema. No obvious deformities. NEUROLOGICAL: Awake and alert. Motor grossly within normal limits. Normal speech. PSYCHIATRIC: Appropriate mood and affect; insight and judgment normal. Medications and IVs Current Medications Medications (Trade) Dose Ordered Sig/Martir Route Start Time Stop Time Status Last Admin (NS 1000 ml Inj) 1,000 ml @ 100 mls/hr Q10H IV 07/27/16 00:11 07/29/16 02:11 (NS Flush) 2 ml UNSCH PRN IV FLUSH 07/27/16 00:15 (NS Flush) 2 ml BID IV FLUSH 07/27/16 09:00 (Zofran Inj) 4 mg Q6H PRN IVP 07/27/16 00:15 (Narcan Inj) 0.4 mg UNSCH PRN IV 07/27/16 00:15 (Morphine Inj) 2 mg Q3H PRN IV PUSH 07/27/16 00:15 07/29/16 05:43 Folic Acid 1 mg 1 mg DAILY PO 07/27/16 09:00 08/01/16 08:59 07/28/16 09:18 Multivitamins 10 ml/Folic Acid 1 mg/Sodium Chloride 510.2 ml @ 125 mls/hr Q24H IV 07/27/16 09:00 08/01/16 08:59 07/28/16 10:42 (Thiamine Inj/NS Inj) 101 ml @ 100 mls/hr Q24H IV 07/27/16 09:00 07/30/16 08:59 07/28/16 09:30 (Vitamin B1) 100 mg DAILY PO 07/30/16 09:00 (Catapres) 0.1 mg Q6H PRN PO 07/27/16 07:45 07/29/16 00:06 (Romazicon Inj) 0.2 mg Q1M PRN IV PUSH 07/27/16 07:45 (Ativan) 1 mg Q4H PRN PO 07/27/16 07:45 (Ativan) 2 mg Q2H PRN PO 07/27/16 07:45 (Ativan Inj) 2 mg Q1H PRN IV PUSH 07/27/16 07:45 (Ativan Inj) 2 mg Q15M PRN IV PUSH 07/27/16 07:45 (Librium) 10 mg BID PO 07/27/16 21:00 07/28/16 20:05 (Protonix Inj) 40 mg Q24H IV PUSH 07/27/16 11:00 07/28/16 11:00 A/P Problem List: (1) Pancreatitis ICD Code: K85.90 Status: Resolved (2) OLGA (acute kidney injury) ICD Code: N17.9 Status: Acute (3) Hydronephrosis ICD Code: N13.30 Status: Acute (4) Hypokalemia ICD Code: E87.6 Status: Acute (5) ETOH abuse ICD Code: F10.10 Status: Chronic Assessment and Plan 50 y/o male with a history of ETOH abuse presented to the ER with nausea, and abdominal pain. Acute pancreatitis, lipase mildly elevated 457--312, resolved -Cont IVF -Cont clear liquid diet, will advance slowly -Morphine Iv for pain management -Protonix for epigastric pain and GI protection Acute Kidney injury, likely due to dehydration, resolved Labs: creatine 1.5, baseline 1.1, resolved to 1.12 Hydronephrosis, congenital in nature Images: Abd CT shows severe right hydronephrosis with right UPJ obstructionto be congenital and chronic per radiology -Consult Urology, Dr Read ordered a Renogram, Renogram showed high grade obstruction in right kidney. Dr Read stated patient wound benefit from outpatient hernia repair. Epigastric tenderness -EGD shows gastritis, GI recommends PPI, avoid alcohol and NSAIDS use, F/U 2 weeks -Cont protonix ETOH abuse -[facility] [facility] protocol -Case management ETOH abuse DC Plan -Encouraged to quit -Taper Librium dose, patient has no signs of withdrawal, last drink was 4 days ago Hypokalemia, stable Labs: Potassium 3.4 DVT prophylaxis with lovenox Discharge Planning Today Problem Qualifiers (1) Pancreatitis: Qualified Code: K85.90 - Acute pancreatitis, unspecified complication status, unspecified pancreatitis type Miriam Espitia July 29, 2016 08:05
[2016-07-29] MEDS ORDERED: ACETAMINOPHEN/HYDROcodone 325 MG/5 MG TAB PO ONE (08:15)
--- NOTE | 2016-07-29 08:20 | HHI.DS ---
cc: Milly Burton MD Discharge Summary Admission Date July 27, 2016 at 00:10 Discharge Date: July 29, 2016 Admitting Diagnosis Pancreatitis, OLGA (1) Pancreatitis ICD Code: K85.90 Diagnosis: Principal (2) OLGA (acute kidney injury) ICD Code: N17.9 Diagnosis: Secondary (3) Hydronephrosis ICD Code: N13.30 Diagnosis: Principal (4) ETOH abuse ICD Code: F10.10 Diagnosis: Secondary Procedures EGD 07/28/16: Erythematous gastritis in the gastric antrum. Normal duodenal mucosa in the bulb and second portion of the duodenum. Brief History - From Admission Patient admitted for 3 days nausea vomiting,no dairrhea, abdominal pain ruq and epigastric with right flank pain. Denies no dysuria or burning, no blood in urine. No fever, reports of headache, not taking Meds, but did have hot sweats and cold. CBC/BMP: 07/28/16 0453 07/28/16 0453 Significant Findings Laboratory Tests Test 07/26/16 07/27/16 07/28/16 22:39 08:55 04:53 Neutrophils (%) (Auto) 76.0 % (16.0-70.0) Creatinine 1.51 MG/DL (0.60-1.30) Estimat Glomerular Filtration 60 ML/MIN (>89) 84 ML/MIN (>89) Rate Random Glucose 117 MG/DL 115 MG/DL 118 MG/DL (74-106) (74-106) (74-106) Aspartate Amino Transf 69 U/L (15-37) 53 U/L (15-37) 38 U/L (15-37) (AST/SGOT) Lipase 457 U/L (73-393) Potassium Level 3.4 MEQ/L 3.4 MEQ/L (3.5-5.1) (3.5-5.1) Blood Urea Nitrogen 6 MG/DL (7-18) Albumin 3.3 GM/DL (3.4-5.0) Imaging Last Impressions Renal Scan w/Medication NM 07/27/16 0000 Signed Impressions: Service Date/Time: Wednesday, July 27, 2016 11:31 - CONCLUSION: High-grade obstruction in right kidney. Vandana Rios MD Head CT 07/27/16 0000 Signed Impressions: Service Date/Time: Wednesday, July 27, 2016 02:58 - CONCLUSION: 1. No evidence of acute intracranial pathology. No masses are identified. Chadwick Riggs MD Abdomen/Pelvis CT 07/27/16 0000 Signed Impressions: Service Date/Time: Wednesday, July 27, 2016 00:57 - CONCLUSION: 1. Right hydronephrosis as above which may reflect uteropelvic junction obstruction likely long-standing. Chadwick Riggs MD PE at Discharge GENERAL: thin, well nourished patient in no acute distress SKIN: Warm and dry. HEAD: Atraumatic. Normocephalic. EYES: Pupils equal and round. No scleral icterus. No injection or drainage. NECK: Trachea midline. No JVD. CARDIOVASCULAR: Regular rate and rhythm. RESPIRATORY: No accessory muscle use. Clear to auscultation. Breath sounds equal bilaterally. GASTROINTESTINAL: Abdomen soft, mild epigastric tenderness, nondistended. BSx4 MUSCULOSKELETAL: Extremities without clubbing, cyanosis, or edema. No obvious deformities. NEUROLOGICAL: Awake and alert. Motor grossly within normal limits. Normal speech. PSYCHIATRIC: Appropriate mood and affect; insight and judgment normal. Hospital Course Patient admitted for mild pancreatitis, lipase 457, which resolved with IVF. Abd CT showed right hydronephrosis with UPJ obstruction, Urology was consulted, renogram ordered and shows high grade obstruction. Dr. Read states patient would benefit from a outpatient hernia repair of his UPJ obstruction. Patient continued to complain of epigastric pain, GI consulted, EGD preformed and gastritis was found, biopsy was taken. GI recommended PPI, avoid alcohol and NSAIDs use, and follow up 2 weeks. Patient was tolerating food and urinating normal. Pt with mild tenderness. Instructed patient it takes 4 weeks to heal gastritis and to avoid drinking, NSAIDs and Protonix medication daily. Discussed follow up with GI in 2 weeks. Patient is stable for discharge. Pt Condition on Discharge: Stable Discharge Disposition: Discharge Home Discharge Time: > 30 minutes Discharge Instructions DIET: Follow Instructions for: Heart Healthy Diet, Gastroesophageal Reflux Additional Diet Instructions: Avoid Alcohol and spicy foods Avoid NSAIDS Activities you can perform: Regular-No Restrictions Follow up Referrals: Gastroenterology - 08/11/16 with Milly Burton MD PCP Follow-up - 2-3 Days New Medications: Pantoprazole (Protonix) 40 Mg Tab 40 MG PO DAILY Reflux #30 Ref 0 TAB Continued Medications: Lisinopril (Lisinopril) 20 Mg Tab 20 MG PO DAILY #30 Ref 0 TAB Miriam Espitia July 29, 2016 08:20 Rodríguez Larios MD August 03, 2016 11:10
[2016-07-29] MEDS: FOLIC ACID 1 MG TAB PO SCH (08:53)
[2016-07-29] MEDS: MULTIVITAMIN INJ 10 ML, FOLIC ACID INJ 1 MG in SODIUM CHLORID 0.9% 500 ML INJ 500 ML IV SCH (08:54)
[2016-07-29] MEDS: THIAMINE INJ 100 MG in SODIUM CHLORIDE 0.9% INJ 100 ML IV SCH (08:54)
[2016-07-29] MEDS: SODIUM CHLORIDE 0.9% FLUSH 10 ML FLUSH IV FLUSH SCH (08:54)
[2016-07-29 09:16] VITALS: PULSE 73
[2016-07-30] MEDS ORDERED: THIAMINE HCL 100 MG TAB PO SCH (09:00)
== END 2016-07-29 10:06 | disposition home or self-care (01) ==
LOC: NEPD 21:00 → NEDA 07-27 00:10 → NEPFCDU 07-27 03:16
PROVIDERS: ADMIT Internal Medicine; ATTEND Internal Medicine
DX: K29.50 Unspecified chronic gastritis without bleeding (principal); K85.90 Acute pancreatitis without necrosis or infection, unspecified; E87.6 Hypokalemia; F10.10 Alcohol abuse, uncomplicated; N17.9 Acute kidney failure, unspecified; I10 Essential (primary) hypertension; N13.0 Hydronephrosis with ureteropelvic junction obstruction; F17.200 Nicotine dependence, unspecified, uncomplicated
CPT/HCPCS: 43239; 70450; 74177; 78708; 80053; 81001; 83690; 85025; 88305; 88312; 96361; 96374; 96375; 99284; A9539; C9113; G0378; J1940; J2270; J2405; J3411; J7030; J7040; Q9967